=== PATIENT | female | born 1990 | race Caucasian/White ===

== ENCOUNTER 2020-02-19 18:10 | Inpatient (IN) | payer OTHER, SELFPAY ==
[2020-02-19] VITALS (12 sets, daily range): BP systolic 125–148; BP diastolic 73–94; PULSE 89–136; RESP 16; TEMP 36.6–37.2; O2SAT 99; BMI 27.9
--- NOTE | 2020-02-19 18:10 | LDADM ---
This patient, Jessica Rivera, was admitted to Labor/Delivery/Recovery 106 on 02/19/20 at 18:10. Plans for labor, pain management and were discussed with patient. Patient/family oriented to hospital policies and general routines including ID bracelet, bed and alarms, visiting hours, pain management, procedures, bathroom and other care routines, personal items, smoking policy, room service/diet and guest tray routines, infant security routines, and visiting hours. Patient/Family are encouraged to report perceived risks to care and to ask questions if they do not understand what they are told or what they should do. See OBIX for further documentation.
[2020-02-19] MEDS: OXYTOCIN 30 UNITS/NS 500 ML 30 UNITS/500 ML BAG 125 UNITS IV CONT ×2 (18:26→19:00)
[2020-02-19 18:30] LABS: Basophils Absolute Auto 0.1 K/mm3 (0.0-0.1); Basophils Percent Auto 0.4 % (0.2-1.2); Eosinophils Absolute Auto 0.1 K/mm3 (0-0.3); Eosinophils Percent Auto 1.2 % (0-4.4); Hematocrit 41.7 % (37.0-47.0); Hemoglobin 13.3 g/dL (12.0-15.0); Immature Granulocyte Absolute 0.05 K/mm3 (0.00-0.031); Immature Granulocyte Percent A 0.4 % (0-0.5); Lymphocytes Absolute Auto 2.24 K/mm3 (0.9-3.2); Lymphocytes Percent Auto 20.1 % (18.3-44.2); Mean Corpuscular HGB Conc 31.9 g/dl (32-36); Mean Corpuscular Hemoglobin 26.3 pg (26-34); Mean Corpuscular Volume 82.4 fl (80-100); Monocytes Absolute Auto 0.9 K/mm3 (0.1-0.6); Monocytes Percent Auto 8.1 % (2.6-8.5); Neutrophils Absolute Auto 7.8 K/mm3 (1.3-6.7); Neutrophils Percent Auto 69.8 % (45.5-73.1); Platelet Count Result 224 k/mm3 (150-375); Red Blood Count 5.06 M/mm3 (4.2-5.4); Red Cell Distribution Width 14.2 % (11.5-14.5); White Blood Count 11.1 K/mm3 (4.5-10.0)
--- NOTE | 2020-02-19 18:33 | PM.OBPRVD ---
OB - Delivery Note Procedure Delivery date: 02/19/20 Intrapartal events: None Induction method: none Delivery monitor: external FHT Route of delivery: Laceration description: None Specimen: No Estimated blood loss (mL): 57 Anesthesia type: None Disposition: floor [place] Baby Date of : 02/19/20 Time of : 18:25 Weeks of gestation at delivery: 38 gender: Female presentation: vertex position: Right Occiput Anterior Placenta delivery description: Spontaneous cord vessel description: 3 Vessels score one minute: 9 score five minutes: 9
--- NOTE | 2020-02-19 18:44 | WPDHPUPDATE1 ---
History and Physical Update Update Date/Time: 02/19/20 18:44 History and Physical has been reviewed, including an updated exam of the patient. There are NO changes in the patient's condition. Risks, benefits, and alternatives have been discussed and questions answered. Patient agrees to proceed with procedure.
--- NOTE | 2020-02-19 18:44 | WPDOBADMIT ---
Obstetrics - Admit Note Admission Note: record reviewed. No pertinent additions to the history and/or any subsequent changes in the physical findings that are not consistent with the expected course of the were found. Additions to the history and/or subsequent changes in the physical findings follow. None.
[2020-02-19] MEDS: IBUPROFEN 600 MG TABLET PO (18:59)
[2020-02-19] MEDS: ACETAMINOPHEN 325 MG TABLET 650 MG PO (19:37)
[2020-02-19] MEDS: BENZOCAINE 20% AER SPR (*SP) 56 GM CAN 1 SPRAY TOPICAL (20:41)
[2020-02-19] MEDS: WITCH HAZEL 40 PADS 1 PAD TOPICAL (20:41)
[2020-02-19] MEDS: DIBUCAINE 1% OINTMENT 30 GM TUBE 1 APPLIC TOPICAL (20:41)
--- NOTE | 2020-02-19 20:53 | OBPPTRN ---
Patient transferred to post room #284 via wheelchair. Support person present. Oriented to unit, room, information board, rooming in, admission packet and security measures. Patient verbalizes understanding. with patient.
[2020-02-20] MEDS: IBUPROFEN 600 MG TABLET PO (03:15)
[2020-02-20] MEDS: ACETAMINOPHEN 325 MG TABLET 650 MG PO (03:15)
[2020-02-20 04:48] LABS: Hematocrit 33.1 % (37.0-47.0); Hemoglobin 10.4 g/dL (12.0-15.0)
[2020-02-20 07:47] LABS: Rapid Plasma Reagin Non-Reactive (NonReactive)
[2020-02-20 08:00] VITALS: BP 149/99; PULSE 88; RESP 18; TEMP 36.7; O2SAT 98
[2020-02-20 08:35] VITALS: BP 150/101
--- NOTE | 2020-02-20 11:15 | PC.NURSE ---
Dr. Murrieta here to see patient, I notified him of patient's blood pressures, no new orders received at this time.
--- NOTE | 2020-02-20 11:18 | P.DS_ITS ---
OB - DS: Summary OB Procedures : None OB Procedures Intrapartum: Spontaneous Vag Delivery OB Procedures: : None Time Spent with Patient Time attestation: Total time spent providing and/or coordinating discharge services: DS: Data Data Completed and Pending Labs on day of discharge: Labs from last 24 hours 02/20/20 02/19/20 02/19/20 03:21 18:18 18:18 WBC RBC Hgb 10.4 L Hct 33.1 L MCV MCH MCHC RDW Plt Count MPV Immature Gran % (Auto) Neut % (Auto) Lymph % (Auto) [place] % (Auto) Eos % (Auto) Baso % (Auto) Lymph # (Auto) [place] # (Auto) Eos # (Auto) Baso # (Auto) Abs Immat Gran (auto) Absolute Neuts (auto) Absolute Nucleated RBC Nucleated RBC % RPR Non-reactive Blood Type O Positive Antibody Screen Negative 02/19/20 18:18 WBC 11.1 H RBC 5.06 Hgb 13.3 Hct 41.7 MCV 82.4 MCH 26.3 MCHC 31.9 L RDW 14.2 Plt Count 224 MPV 13.0 H Immature Gran % (Auto) 0.4 Neut % (Auto) 69.8 Lymph % (Auto) 20.1 [place] % (Auto) 8.1 Eos % (Auto) 1.2 Baso % (Auto) 0.4 Lymph # (Auto) 2.24 [place] # (Auto) 0.9 H Eos # (Auto) 0.1 Baso # (Auto) 0.1 Abs Immat Gran (auto) 0.05 H Absolute Neuts (auto) 7.8 H Absolute Nucleated RBC 0.0 Nucleated RBC % 0.0 RPR Blood Type Antibody Screen Discharge Plan Discharge Discharging Clinician: Jerardo Murrieta Patient Disposition: Home, Self-Care Activity: as tolerated Diet: as tolerated Discharge Instructions: Pre-E sx discussed at length. Patient Instructions: Antibiotic Form Stand Alone Forms: General Discharge Information Follow-up/Referrals: Jerardo Murrieta MD [Physician] - 02/22/20 Discharge Medications: Continued levothyroxine [Synthroid] 75 mcg Tablet 75 mcg PO EVERY OTHER DAY RF: 0 levothyroxine [Synthroid] 100 mcg Tablet 100 mcg PO EVERY OTHER DAY RF: 0 PNV cmb#[id number] fumarate-FA [] 28 mg iron- 800 mcg Tablet 1 tablet PO DAILY RF: 0 Date of admission: 02/19/20 18:10 Primary Care Provider: PHYSICIAN,MANAGING ATTORNEY Admitting Provider: Jerardo Murrieta Attending physician on admission: Jerardo Murrieta
--- NOTE | 2020-02-20 11:20 | PM.OBPNVD ---
OB - PN: Subj Subjective Date/time seen: 02/20/20 11:20 No s/s of elevated pressures. Discussed at length, strongly desires to be discharged. Will f/u 48h for BP check, call if any sx occur once discharged. OB - PN: Obj Data Labs CBC & Chem 7: 02/20/20 03:21 Labs: Laboratory Results - last 24 hr 02/19/20 02/19/20 02/19/20 18:18 18:18 18:18 WBC 11.1 H RBC 5.06 Hgb 13.3 Hct 41.7 MCV 82.4 MCH 26.3 MCHC 31.9 L RDW 14.2 Plt Count 224 MPV 13.0 H Immature Gran % (Auto) 0.4 Neut % (Auto) 69.8 Lymph % (Auto) 20.1 [place] % (Auto) 8.1 Eos % (Auto) 1.2 Baso % (Auto) 0.4 Lymph # (Auto) 2.24 [place] # (Auto) 0.9 H Eos # (Auto) 0.1 Baso # (Auto) 0.1 Abs Immat Gran (auto) 0.05 H Absolute Neuts (auto) 7.8 H Absolute Nucleated RBC 0.0 Nucleated RBC % 0.0 RPR Non-reactive Blood Type O Positive Antibody Screen Negative 02/20/20 03:21 WBC RBC Hgb 10.4 L Hct 33.1 L MCV MCH MCHC RDW Plt Count MPV Immature Gran % (Auto) Neut % (Auto) Lymph % (Auto) [place] % (Auto) Eos % (Auto) Baso % (Auto) Lymph # (Auto) [place] # (Auto) Eos # (Auto) Baso # (Auto) Abs Immat Gran (auto) Absolute Neuts (auto) Absolute Nucleated RBC Nucleated RBC % RPR Blood Type Antibody Screen OB - PN A/P Time Spent With Patient Time: Total time spent is greater than 50% in coordination of care (as documented) at patient's floor/unit and/or counseling patient:
[2020-02-21 09:27] VITALS: BP 136/82; PULSE 91; RESP 20; TEMP 36.7
== END 2020-02-20 19:26 | disposition home or self-care (01) | DRG 807 ==
LOC: ANHLDR 20:24 → ANHOB2 20:55
PROVIDERS: Admitting Provider Obstetrics & Gynecology; Visit Provider Obstetrics & Gynecology
DX: O62.3 Precipitate labor (principal); Z37.0 Single live birth; Z3A.38 38 weeks gestation of pregnancy; O99.284 Endocrine, nutritional and metabolic diseases complicating childbirth; E03.9 Hypothyroidism, unspecified
CPT/HCPCS: 36415; 85014; 85018; 85025; 86592; 86850; 86900; 86901; A9270; J2590